=== PATIENT | male | born 1990 | race Caucasian/White ===

== ENCOUNTER 2016-12-31 14:27 | Emergency (ER) | payer SELFPAY ==
[2016-12-31] MEDS ORDERED: Ketorolac 30 MG/ML SDV IVPUSH ONE (14:47)
[2016-12-31] MEDS ORDERED: ALPRAZolam 0.5 MG Tab PO ONE (14:48)
--- NOTE | 2016-12-31 15:28 | CR ---
EXAMINATION: Two-view chest (PA and Lateral views). HISTORY: Chest pain. FINDINGS: The trachea is midline. The cardiomediastinal silhouette is within normal limits. No pulmonary infil trates, effusions or pneumothorax. Osseous structures appear unremarkable. IMPRESSION: No acute cardiopulmonary process.
--- NOTE | 2016-12-31 15:46 | EDM.PDOC ---
ED HPI GENERAL MEDICAL PROBLEM - General Stated Complaint: CHEST PAIN Time Seen by Provider: 12/31/16 14:39 Source of Information: Reports: Patient History Limitations: Reports: No Limitations - History of Present Illness INITIAL COMMENTS - FREE TEXT/NARRATIVE: HISTORY AND PHYSICAL: History of present illness: [26-year-old male with a history of anxiety noncompliant recently with his Xanax because he ran out and his doctor was out of town, now presents emergency department complaining of chest soreness. 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 His anterior chest is sore with palpation and movement , twisting and range of motion. He has no productive cough or fever. Denies pleuritic pain. No exertional chest pain or shortness of breath no nausea vomiting denies diaphoresis. Patient does smoke he has no high blood pressure high cholesterol diabetes. He has no family history of coronary artery disease at a young age but his uncle had an DC in his 50s. Patient is very clear he has no exertional symptoms whatsoever Review of systems: As per history of present illness and below otherwise all systems reviewed and negative. Past medical history: As per history of present illness and as reviewed below otherwise noncontributory. Surgical history: As per history of present illness and as reviewed below otherwise noncontributory. Social history: No reported history of drug or alcohol abuse. Family history: As per history of present illness and as reviewed below otherwise noncontributory. Physical exam: HEENT: Atraumatic, normocephalic, pupils reactive, negative for conjunctival pallor or scleral icterus, mucous membranes moist, throat clear, neck supple, nontender, trachea midline. Lungs: Clear to auscultation, breath sounds equal bilaterally, chest nontender. Heart: S1S2, regular, negative for clicks, rubs, or JVD. Abdomen: Soft, nondistended, nontender. Negative for masses or hepatosplenomegaly. Negative for costovertebral tenderness. Pelvis: Stable nontender. Genitourinary: Deferred. Rectal: Deferred. Extremities: Atraumatic, negative for cords or calf pain. Neurovascular unremarkable. Neuro: Awake, alert, oriented. Cranial nerves II through XII unremarkable. Cerebellum unremarkable. Motor and sensory unremarkable throughout. Exam nonfocal. Diagnostics: [Chest x-ray no acute disease interpreted by me report reviewed EKG normal sinus rhythm at 81 normal axis no STEMI are provided by me] Therapeutics: [Toradol given IV with good relief.] Impression: [Chest wall pain Thoracic strain] Plan: [Signs and symptoms consistent with easily reproducible chest wall strain. 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 His pain is 100% reproducible and this is clearly the pain for which he presented. No evidence of pleuritic pain infectious prodrome or exertional symptoms. Chest x-ray EKG unremarkable. Troponin negative. Improved after Toradol. No further workup or treatment indicated. Patient agrees with outpatient follow-up and strict return precautions given] Definitive disposition and diagnosis as appropriate pending reevaluation and review of above. - Related Data Allergies Allergy/AdvReac Type Severity Reaction Status Date / Time acetaminophen Allergy Other Verified 06/10/16 18:07 [From Tylenol-Codeine #3] aripiprazole [From Abilify] Allergy Other Verified 06/10/16 18:08 codeine Allergy Other Verified 06/10/16 18:07 [From Tylenol-Codeine #3] lamotrigine [From Lamictal] Allergy Other Verified 06/10/16 18:08 tramadol Allergy Nausea Verified 06/10/16 18:07 Home Meds: Home Meds ALPRAZolam [Alprazolam] 0.5 mg PO DAILY 06/10/16 [History] buPROPion [Wellbutrin] 75 mg PO DAILY 12/31/16 [History] traZODone 50 mg PRN 12/31/16 [History] Past Medical History Psychiatric History: Reports: Anxiety Social & Family History - Tobacco Use Smoking Status *Q: Current Every Day Smoker Years of Tobacco use: 7 Packs/Tins Daily: 1 - Caffeine Use Caffeine Use: Reports: None - Recreational Drug Use Recreational Drug Use: No ED ROS GENERAL - Review of Systems Review Of Systems: See Below (History of present illness) ED EXAM, GENERAL - Physical Exam Exam: See Below (History of present illness) Departure - Departure Time of Disposition: 15:52 Disposition: Home, Self-Care 01 Condition: Good Clinical Impression: Chest wall pain, Anxiety about health - Discharge Information Referrals: PCP,None [Primary Care Provider] - Additional Instructions: Your symptoms are clearly consistent with chest wall soreness and pain. As you do a very strenuous job is common for people in your position to get some soreness of the muscles between the ribs and which makeup and reinforce the chest wall or thoracic cage take ibuprofen 800 mg every 6 hours as needed for pain. You may find warm soaks and gentle stretches helpful. Be aware that when you do a highly strenuous job such as lifting and moving large truck tires, you will always be at risk for muscle and chest wall soreness strain or muscle/soft tissue injury. It is also very clear that your anxiety was contributing to your symptoms today. Follow-up with your doctor as scheduled tomorrow for refill of your Xanax prescription Follow up with your DrEric and return for new severe or worsening symptoms
[2016-12-31 16:19] VITALS: BP 117/69
== END 2016-12-31 16:11 | disposition home or self-care (01) ==
LOC: MW.ED 14:27
DX: S29.011A Strain of muscle and tendon of front wall of thorax, initial encounter (principal); F41.9 Anxiety disorder, unspecified; F17.210 Nicotine dependence, cigarettes, uncomplicated; Z88.6 Allergy status to analgesic agent; Z88.5 Allergy status to narcotic agent; Z88.8 Allergy status to other drugs, medicaments and biological substances; Z79.899 Other long term (current) drug therapy; X50.9XXA Other and unspecified overexertion or strenuous movements or postures, initial encounter
CPT/HCPCS: 71020; 84484; 96374; 99285; A9270; J1885; 93005; 99282

== ENCOUNTER 2017-10-22 22:45 | Emergency (ER) | payer SELFPAY ==
[2017-10-22] MEDS ORDERED: Sodium Chloride 0.9% 2.5 ML Syringe FLUSH PRN (22:49)
[2017-10-22] MEDS ORDERED: Albuterol/Ipratropium 3.0-0.5 MG/3 ML Neb Soln NEB ONE (22:49)
[2017-10-22] MEDS ORDERED: Sodium Chloride 0.9% 10 ML Syringe FLUSH PRN (22:49)
[2017-10-22] MEDS ORDERED: Sodium Chloride 0.9% 1,000 ML IV ONE (22:49)
[2017-10-22] MEDS ORDERED: Acetaminophen 500 MG Tab PO ONE (22:50)
[2017-10-22] MEDS ORDERED: Levofloxacin/Dextrose 5%-Water 750 MG in Premix Bag 1 BAG IV ONE (22:53)
--- NOTE | 2017-10-22 22:53 | EDM.PDOC ---
ED HPI GENERAL MEDICAL PROBLEM - General Stated Complaint: CHEST PAIN Time Seen by Provider: 10/22/17 22:48 - History of Present Illness INITIAL COMMENTS - FREE TEXT/NARRATIVE: HISTORY AND PHYSICAL: History of present illness: Patient is a 26-year-old white male presents in custody of law enforcement from the [facility] with fever shortness of breath and palpitations. He denies chest pain nausea vomiting abdominal pain trauma eyes any known infectious disease denies HIV Review of systems: As per history of present illness and below otherwise all systems reviewed and negative. Past medical history: As per history of present illness and as reviewed below otherwise noncontributory. Surgical history: As per history of present illness and as reviewed below otherwise noncontributory. Social history: No reported history of drug or alcohol abuse. Family history: As per history of present illness and as reviewed below otherwise noncontributory. Physical exam: HEENT: Atraumatic, normocephalic, pupils reactive, negative for conjunctival pallor or scleral icterus, mucous membranes moist, throat clear, neck supple, nontender, trachea midline. Lungs: Coarse bilaterally, breath sounds equal bilaterally, chest nontender. Heart: S1S2, tachycardic regular, negative for clicks, rubs, or JVD. Abdomen: Soft, nondistended, nontender. Negative for masses or hepatosplenomegaly. Negative for costovertebral tenderness. Pelvis: Stable nontender. Genitourinary: Deferred. Rectal: Deferred. Extremities: Atraumatic, negative for cords or calf pain. Neurovascular unremarkable. Neuro: Awake, alert, oriented. Cranial nerves II through XII unremarkable. Cerebellum unremarkable. Motor and sensory unremarkable throughout. Exam nonfocal. Diagnostics: CBC CMP EKG chest x-ray blood culture 2 urine drug screen lactic acid ABG Therapeutics: Albuterol/ipratropium nebulizer Levaquin 750 IV Impression: #1 fever #2 dyspnea Definitive disposition and diagnosis as appropriate pending reevaluation and review of above. - Related Data Allergies Allergy/AdvReac Type Severity Reaction Status Date / Time acetaminophen Allergy Other Verified 06/10/16 18:07 [From Tylenol-Codeine #3] aripiprazole [From Abilify] Allergy Other Verified 06/10/16 18:08 codeine Allergy Other Verified 06/10/16 18:07 [From Tylenol-Codeine #3] lamotrigine [From Lamictal] Allergy Other Verified 06/10/16 18:08 tramadol Allergy Nausea Verified 06/10/16 18:07 Home Meds: Home Meds ALPRAZolam [Alprazolam] 0.5 mg PO DAILY 06/10/16 [History] buPROPion [Wellbutrin] 75 mg PO DAILY 12/31/16 [History] traZODone 50 mg PRN 12/31/16 [History] Past Medical History Respiratory History: Reports: Bronchitis, Recurrent, Pneumonia, Recurrent Gastrointestinal History: Reports: Other (See Below) Other Gastrointestinal History: hernia repairs x5 Genitourinary History: Reports: Renal Calculus Psychiatric History: Reports: Anxiety - Infectious Disease History Infectious Disease History: Reports: MRSA - Past Surgical History HEENT Surgical History: Reports: Adenoidectomy, Tonsillectomy, Other (See Below) Other HEENT Surgeries/Procedures: tubes bilat GI Surgical History: Reports: Hernia Repair/Other Other GI Surgeries/Procedures: x5 Male Surgical History: Reports: Other (See Below) Other Male Surgeries/Procedures: epididymitis recurring Musculoskeletal Surgical History: Reports: Other (See Below) Other Musculoskeletal Surgeries/Procedures:: ankle surgery x2 L ankle Social & Family History - Family History Cardiac: Reports: [place] Other Cardiac Family History: uncle - Caffeine Use Caffeine Use: Reports: None ED ROS GENERAL - Review of Systems Review Of Systems: ROS reveals no pertinent complaints other than HPI. ED EXAM, GENERAL - Physical Exam Exam: See Below (Dictation) Course - Vital Signs Last Recorded V/S: Last Vital Signs Temp 37.0 C 10/23/17 02:44 Pulse 124 H 10/23/17 03:15 Resp 21 H 10/23/17 03:15 BP 75/41 L 10/23/17 03:15 Pulse Ox 97 10/23/17 03:15 - Orders/Labs/Meds Orders: Active Orders 24 hr Category Date Time Status Cardiac Monitoring [RC] . DIRECTED Care 10/22/17 22:48 Active EKG Documentation Completion [RC] STAT Care 10/22/17 22:48 Active Oxygen Therapy, ED [RC] ASDIRECTED Care 10/22/17 22:48 Active Pulse Oximetry [RC] ASDIRECTED Care 10/22/17 22:48 Active RT Aerosol Therapy [RC] ASDIRECTED Care 10/22/17 22:50 Active Chest 1V Frontal [CR] Stat Exams 10/22/17 22:49 Taken CULTURE BLOOD [BC] Stat Lab 10/22/17 23:00 Received CULTURE BLOOD [BC] Stat Lab 10/22/17 23:14 Received DRUG SCREEN, URINE [URCHEM] Stat Lab 10/22/17 23:47 Ordered UA W/MICROSCOPIC [URIN] Stat Lab 10/22/17 23:47 Ordered Piperacillin/Tazobactam [Piperacil-Tazobact] 3.375 gm Med 10/23/17 03:17 Active Sodium Chloride 0.9% [Normal Saline] 50 ml IV ONETIME Sodium Chloride 0.9% [Saline Flush] Med 10/22/17 22:49 Active 10 ml FLUSH ASDIRECTED PRN Sodium Chloride 0.9% [Saline Flush] Med 10/22/17 22:49 Active 2.5 ml FLUSH ASDIRECTED PRN Blood Culture x2 Reflex Set [OM.PC] Stat Oth 10/22/17 22:49 Ordered Saline Lock Insert [OM.PC] Stat Oth 10/22/17 22:48 Ordered Medication Orders Piperacillin Sod/Tazobactam (Sod 3.375 gm/ Sodium Chloride) 50 mls @ 100 mls/ hr IV ONETIME ONE Stop: 10/23/17 03:46 Last Admin: 10/23/17 03:24 Dose: 100 mls/hr Sodium Chloride (Saline Flush) 10 ml FLUSH ASDIRECTED PRN PRN Reason: Keep Vein Open Last Admin: 10/22/17 23:10 Dose: 10 ml Sodium Chloride (Saline Flush) 2.5 ml FLUSH ASDIRECTED PRN PRN Reason: Keep Vein Open Last Admin: 10/22/17 23:10 Dose: 2.5 ml Labs: Laboratory Tests 10/22/17 10/22/17 10/22/17 Range/Units 23:00 23:00 23:00 WBC 13.21 H (4.0-11.0) K/uL RBC 3.43 L (4.50-5.90) M/uL Hgb 9.9 L (13.0-17.0) g/dL Hct 29.7 L (38.0-50.0) % MCV 86.6 (80.0-98.0) fL MCH 28.9 (27.0-32.0) pg MCHC 33.3 (31.0-37.0) g/dL RDW Std Deviation 43.9 (28.0-62.0) fl RDW Coeff of Pardeep 14 (11.0-15.0) % Plt Count 348 (150-400) K/uL MPV 8.80 (7.40-12.00) fL Neut % (Auto) 88.5 H (48.0-80.0) % Lymph % (Auto) 9.5 L (16.0-40.0) % Day % (Auto) 1.1 (0.0-15.0) % Eos % (Auto) 0.8 (0.0-7.0) % Baso % (Auto) 0.1 (0.0-1.5) % Neut # (Auto) 11.7 H (1.4-5.7) K/uL Lymph # (Auto) 1.3 (0.6-2.4) K/uL Day # (Auto) 0.1 (0.0-0.8) K/uL Eos # (Auto) 0.1 (0.0-0.7) K/uL Baso # (Auto) 0.0 (0.0-0.1) K/uL Nucleated RBC % 0.0 /100WBC Nucleated RBCs # 0 K/uL INR 1.28 ABG pH (7.35-7.45) ABG pCO2 (35-45) mmHG ABG pO2 (75-100) mmHG ABG HCO3 (22-26) mEq/L ABG Total CO2 ABG Base Excess (-2.0-2.0) Lactate (0.20-2.00) mmol/L Sodium 137 (136-148) mmol/L Potassium 3.7 (3.5-5.1) mmol/L Chloride 101 (98-107) mmol/L Carbon Dioxide 24.0 (21.0-32.0) mmol/L BUN 15 (7.0-18.0) mg/dL Creatinine 1.1 (0.8-1.3) mg/dL Est Cr Clr Drug Dosing 84.88 mL/min Estimated GFR (MDRD) > 60.0 ml/min Glucose 130 H (74-106) mg/dL Calcium 8.0 L (8.5-10.1) mg/dL Total Bilirubin 0.4 (0.2-1.0) mg/dL AST 67 H (15-37) IU/L ALT 85 H (14-63) IU/L Alkaline Phosphatase 157 H (46-116) U/L Total Protein 7.0 (6.4-8.2) g/dL Albumin 2.0 L (3.4-5.0) g/dL Globulin 5.0 H (2.0-3.5) g/dL Albumin/Globulin Ratio 0.4 L (1.3-2.8) Urine Color Urine Appearance Urine pH (5.0-8.0) Ur Specific [place] (1.001-1.035) Urine Protein (NEGATIVE) mg/dL Urine Glucose (UA) (NEGATIVE) mg/dL Urine Ketones (NEGATIVE) mg/dL Urine Occult Blood (NEGATIVE) Urine Nitrite (NEGATIVE) Urine Bilirubin (NEGATIVE) Urine Urobilinogen (<2.0) EU/dL Ur Leukocyte Esterase (NEGATIVE) Urine RBC (0-2/HPF) Urine WBC (0-5/HPF) Ur Epithelial Cells (NONE-FEW) Urine Bacteria (NEGATIVE) Urine Opiates Screen (NEGATIVE) Ur Oxycodone Screen (NEGATIVE) Urine Methadone Screen (NEGATIVE) Ur Barbiturates Screen (NEGATIVE) Ur Phencyclidine Scrn (NEGATIVE) Ur Amphetamine Screen (NEGATIVE) U Methamphetamines Scrn (NEGATIVE) U Benzodiazepines Scrn (NEGATIVE) U Cocaine Metab Screen (NEGATIVE) U Marijuana (THC) Screen (NEGATIVE) 10/22/17 10/22/17 10/22/17 Range/Units 23:15 23:47 23:47 WBC (4.0-11.0) K/uL RBC (4.50-5.90) M/uL Hgb (13.0-17.0) g/dL Hct (38.0-50.0) % MCV (80.0-98.0) fL MCH (27.0-32.0) pg MCHC (31.0-37.0) g/dL RDW Std Deviation (28.0-62.0) fl RDW Coeff of Pardeep (11.0-15.0) % Plt Count (150-400) K/uL MPV (7.40-12.00) fL Neut % (Auto) (48.0-80.0) % Lymph % (Auto) (16.0-40.0) % Day % (Auto) (0.0-15.0) % Eos % (Auto) (0.0-7.0) % Baso % (Auto) (0.0-1.5) % Neut # (Auto) (1.4-5.7) K/uL Lymph # (Auto) (0.6-2.4) K/uL Day # (Auto) (0.0-0.8) K/uL Eos # (Auto) (0.0-0.7) K/uL Baso # (Auto) (0.0-0.1) K/uL Nucleated RBC % /100WBC Nucleated RBCs # K/uL INR ABG pH 7.470 H (7.35-7.45) ABG pCO2 32 L (35-45) mmHG ABG pO2 87 (75-100) mmHG ABG HCO3 24 (22-26) mEq/L ABG Total CO2 21.9 ABG Base Excess 0.2 (-2.0-2.0) Lactate 1.4 (0.20-2.00) mmol/L Sodium (136-148) mmol/L Potassium (3.5-5.1) mmol/L Chloride (98-107) mmol/L Carbon Dioxide (21.0-32.0) mmol/L BUN (7.0-18.0) mg/dL Creatinine (0.8-1.3) mg/dL Est Cr Clr Drug Dosing mL/min Estimated GFR (MDRD) ml/min Glucose (74-106) mg/dL Calcium (8.5-10.1) mg/dL Total Bilirubin (0.2-1.0) mg/dL AST (15-37) IU/L ALT (14-63) IU/L Alkaline Phosphatase (46-116) U/L Total Protein (6.4-8.2) g/dL Albumin (3.4-5.0) g/dL Globulin (2.0-3.5) g/dL Albumin/Globulin Ratio (1.3-2.8) Urine Color YELLOW Urine Appearance CLEAR Urine pH 6.0 (5.0-8.0) Ur Specific [place] 1.010 (1.001-1.035) Urine Protein TRACE (NEGATIVE) mg/dL Urine Glucose (UA) NEGATIVE (NEGATIVE) mg/dL Urine Ketones NEGATIVE (NEGATIVE) mg/dL Urine Occult Blood LARGE H (NEGATIVE) Urine Nitrite NEGATIVE (NEGATIVE) Urine Bilirubin NEGATIVE (NEGATIVE) Urine Urobilinogen 0.2 (<2.0) EU/dL Ur Leukocyte Esterase NEGATIVE (NEGATIVE) Urine RBC 2-3 (0-2/HPF) Urine WBC 0-1 (0-5/HPF) Ur Epithelial Cells RARE (NONE-FEW) Urine Bacteria RARE (NEGATIVE) Urine Opiates Screen NEGATIVE (NEGATIVE) Ur Oxycodone Screen NEGATIVE (NEGATIVE) Urine Methadone Screen NEGATIVE (NEGATIVE) Ur Barbiturates Screen NEGATIVE (NEGATIVE) Ur Phencyclidine Scrn NEGATIVE (NEGATIVE) Ur Amphetamine Screen NEGATIVE (NEGATIVE) U Methamphetamines Scrn NEGATIVE (NEGATIVE) U Benzodiazepines Scrn NEGATIVE (NEGATIVE) U Cocaine Metab Screen NEGATIVE (NEGATIVE) U Marijuana (THC) Screen NEGATIVE (NEGATIVE) Meds: Medications Generic Name Dose Route Start Last Admin Trade Name Freq PRN Reason Stop Dose Admin Piperacillin Sod/Tazobactam 50 mls @ 100 mls/hr 10/23/17 03:17 10/23/17 03:24 Sod 3.375 gm/ Sodium Chloride IV 10/23/17 03:46 100 mls/hr ONETIME ONE Administration Sodium Chloride 10 ml 10/22/17 22:49 10/22/17 23:10 Saline Flush FLUSH 10 ml ASDIRECTED PRN Administration Keep Vein Open Sodium Chloride 2.5 ml 10/22/17 22:49 10/22/17 23:10 Saline Flush FLUSH 2.5 ml ASDIRECTED PRN Administration Keep Vein Open Discontinued Medications Generic Name Dose Route Start Last Admin Trade Name Freq PRN Reason Stop Dose Admin Acetaminophen 1,000 mg 10/22/17 22:50 10/22/17 23:08 Tylenol Extra Strength PO 10/22/17 22:51 1,000 mg ONETIME ONE Administration Albuterol/Ipratropium 3 ml 10/22/17 22:49 10/22/17 23:10 Duoneb 3.0-0.5 Mg/3 Ml NEB 10/22/17 22:50 3 ml ONETIME ONE Administration Sodium Chloride 1,000 mls @ 999 mls/hr 10/22/17 22:49 10/22/17 23:08 Normal Saline IV 10/22/17 23:49 999 mls/hr STAT ONE Administration Levofloxacin/Dextrose 750 mg/ 150 mls @ 100 mls/hr 10/22/17 22:53 10/22/17 23 :08 Premix IV 10/23/17 00:22 100 mls/hr ONETIME ONE Administration Sodium Chloride 1,000 mls @ 999 mls/hr 10/23/17 00:22 10/23/17 00:25 Normal Saline IV 10/23/17 01:22 999 mls/hr .Bolus ONE Administration Sodium Chloride 1,000 mls @ 999 mls/hr 10/23/17 01:20 10/23/17 01:27 Normal Saline IV 10/23/17 02:20 999 mls/hr .Bolus ONE Administration Vancomycin HCl 1,000 mg/ 250 mls @ 167 mls/hr 10/23/17 01:20 10/23/17 01:33 Dextrose/Water IV 10/23/17 02:49 Not Given ONETIME ONE Vancomycin HCl 1 gm/ Sodium 250 mls @ 166 mls/hr 10/23/17 01:25 10/23/17 01: 28 Chloride IV 10/23/17 02:55 166 mls/hr ONETIME ONE Administration Ibuprofen 400 mg 10/23/17 01:20 10/23/17 01:26 Motrin PO 10/23/17 01:21 400 mg ONETIME ONE Administration Departure - Departure Time of Disposition: 03:27 Disposition: DC/Tfer to Acute Hospital 02 Condition: Serious Clinical Impression: Sepsis - Discharge Information - My Orders Last 24 Hours: My Active Orders 10/22/17 22:48 Cardiac Monitoring [RC] . DIRECTED EKG Documentation Completion [RC] STAT Oxygen Therapy, ED [RC] ASDIRECTED Pulse Oximetry [RC] ASDIRECTED Saline Lock Insert [OM.PC] Stat 10/22/17 22:49 Chest 1V Frontal [CR] Stat Sodium Chloride 0.9% [Saline Flush] 10 ml FLUSH ASDIRECTED PRN Sodium Chloride 0.9% [Saline Flush] 2.5 ml FLUSH ASDIRECTED PRN Blood Culture x2 Reflex Set [OM.PC] Stat 10/22/17 22:50 RT Aerosol Therapy [RC] ASDIRECTED 10/22/17 23:00 CULTURE BLOOD [BC] Stat 10/22/17 23:14 CULTURE BLOOD [BC] Stat 10/22/17 23:47 DRUG SCREEN, URINE [URCHEM] Stat UA W/MICROSCOPIC [URIN] Stat 10/23/17 03:17 Piperacillin/Tazobactam [Piperacil-Tazobact] 3.375 gm Sodium Chloride 0.9% [ Normal Saline] 50 ml IV ONETIME - Assessment/Plan Last 24 Hours: My Active Orders 10/22/17 22:48 Cardiac Monitoring [RC] . DIRECTED EKG Documentation Completion [RC] STAT Oxygen Therapy, ED [RC] ASDIRECTED Pulse Oximetry [RC] ASDIRECTED Saline Lock Insert [OM.PC] Stat 10/22/17 22:49 Chest 1V Frontal [CR] Stat Sodium Chloride 0.9% [Saline Flush] 10 ml FLUSH ASDIRECTED PRN Sodium Chloride 0.9% [Saline Flush] 2.5 ml FLUSH ASDIRECTED PRN Blood Culture x2 Reflex Set [OM.PC] Stat 10/22/17 22:50 RT Aerosol Therapy [RC] ASDIRECTED 10/22/17 23:00 CULTURE BLOOD [BC] Stat 10/22/17 23:14 CULTURE BLOOD [BC] Stat 10/22/17 23:47 DRUG SCREEN, URINE [URCHEM] Stat UA W/MICROSCOPIC [URIN] Stat 10/23/17 03:17 Piperacillin/Tazobactam [Piperacil-Tazobact] 3.375 gm Sodium Chloride 0.9% [ Normal Saline] 50 ml IV ONETIME
[2017-10-22 23:42] LABS: CHLORIDE,CL 101 mmol/L (98-107); SODIUM,NA 137 mmol/L (136-148)
[2017-10-23] MEDS ORDERED: Sodium Chloride 0.9% 1,000 ML IV ONE ×2 (00:22→01:20)
[2017-10-23] MEDS ORDERED: Ibuprofen 400 MG Tab PO ONE (01:20)
[2017-10-23] MEDS ORDERED: Piperacillin/Tazobactam 3.375 GM in Sodium Chloride 0.9% 50 ML IV ONE (03:17)
[2017-10-23] MEDS ORDERED: Hydrocortisone Sodium Succinate 250 MG/2 ML SDV IV ONE (03:38)
[2017-10-23] MEDS ORDERED: Hydrocortisone Sodium Succinate 100 MG/2 ML SDV ONE (03:55)
[2017-10-23 04:28] VITALS: BP 87/55
--- NOTE | 2017-10-23 12:46 | CR ---
EXAM DATE: 10/22/17 PATIENT'S AGE: 26 Patient: BROOK EUBANKS Facility: [place], [place] Site . Site : 1990 Study: XRay Chest [id number] 11:28:58 PM Ordering Physician: Ama Barrett Final Report: For INDICATION: Chest pain and shortness breath TECHNIQUE: Chest 1 views COMPARISON: 12/31/2016 FINDINGS: Cardiovascular and mediastinum: Heart size and vasculature are normal in caliber and appearance. Lungs and pleural spaces: Lungs are clear. No sign of infiltrate or mass. No sign of pleural effusion. No pneumothorax. Bones and soft tissues: No significant findings. IMPRESSION: No acute findings and no significant changes from the prior exam. Dictated by Tra Orta MD @ Oct 22 2017 11:37PM (Electronic Signature) Report Signed by Proxy. AB
== END 2017-10-23 04:23 ==
LOC: MW.ED 22:45
DX: A41.9 Sepsis, unspecified organism (principal); Z88.8 Allergy status to other drugs, medicaments and biological substances; Z88.5 Allergy status to narcotic agent; Z79.899 Other long term (current) drug therapy
CPT/HCPCS: 36415; 36600; 71045; 80053; 80305; 81001; 82803; 83605; 85025; 85610; 87040; 87077; 87186; 93005; 94640; 96361; 96365; 96366; 96367; 96375; 99285; A9270; J1720; J1956; J2543; J3370; J7040; J7050